=== PATIENT | male | born 1950 | race Caucasian/White ===

== ENCOUNTER 2022-01-07 00:24 | Day surgery (SDC) | payer MEDICARE, SELFPAY ==
[2021-12-28 12:11] VITALS: BMI 23.4
--- NOTE | 2022-01-06 15:18 | PM.HPGS ---
History of Present Illness History of Present Illness Consent: Risks, benefits, and alternatives have been discussed and questions answered. Patient agrees to proceed with procedure. Chief complaint: neoplasm screening Narrative: Jean Paul Obrien is a 71 year old male who was referred for colon cancer screening. he has a history of colon polyps. His last colonoscopy was 5 years ago Review of Systems Review of Systems: All systems reviewed & are unremarkable except as noted in HPI and below PMFSH Past Medical History Medical History Hyperlipidemia Lymphoma in remission Renal stones Surgical History Surgical History H/O nasal septoplasty Social History Social History Smoking status: Never smoker Alcohol intake: current Alcohol use details: Rarely Living arrangements: with family Gender identity (if verbalized by the patient): Male Spiritual care concerns: No Meds Home Medications and Allergies Home Medications Medication Instructions Recorded Confirmed Type acetaminophen [Tylenol Extra 500 mg PO Q4H PRN 07/03/19 01/07/22 History Strength] biotin 2,500 mcg PO DAILY 12/28/21 01/07/22 History simvastatin 40 mg PO DAILY 12/28/21 01/07/22 History Allergies Allergy/AdvReac Type Severity Reaction Status Date / Time iohexol Allergy Intermediate Hives Verified 01/07/22 08:46 [From CONTRAST - CT, XRAY] amoxicillin Allergy Unknown Confusion Verified 01/07/22 08:46 clavulanic acid Allergy Unknown Confusion Verified 01/07/22 08:46 Exam Const: General: alert Orientation/consciousness: patient oriented x3 Resp: Auscultation: clear to auscultation bilaterally Cardio: Rhythm: regular rhythm GI: GI Palp: Yes Soft to palpation and No Tenderness to palpation present (GI) Neuro: General: patient oriented x3 Assessment and Plan Assessment and plan (1) Colon cancer screening: Code(s): Z12.11 - Encounter for screening for malignant neoplasm of colon Status: Acute Assessment and Plan: Colonoscopy with possible biopsy or polypectomy or cautery or injection of substances.
[2022-01-07 08:37] VITALS: BP 96/59; PULSE 71; RESP 16; TEMP 35.9; O2SAT 99; BMI 23.0
--- NOTE | 2022-01-07 08:53 | WPDANESEPPF ---
Anes - Initial Pre Proc Eval Procedure: Operation Date: 01/07/22 10:00 Proposed Procedures p Screening Colonoscopy - Matthew Sutherland MD Date/Time: 01/07/22 08:53 Surgeon: Matthew Sutherland MD Pre Op Diagnosis: neoplasm screening Patient Data Age: 71 Gender: M Height: 1.73 m Weight: 68.6 kg Last Vital Signs Temp 35.9 C L 01/07/22 08:37 Pulse 71 01/07/22 08:37 Resp 16 01/07/22 08:37 BP 96/59 L 01/07/22 08:37 Pulse Ox 99 01/07/22 08:37 Allergies Allergy/AdvReac Type Severity Reaction Status Date / Time iohexol Allergy Intermediate Hives Verified 01/07/22 08:46 [From CONTRAST - CT, XRAY] amoxicillin Allergy Unknown Confusion Verified 01/07/22 08:46 clavulanic acid Allergy Unknown Confusion Verified 01/07/22 08:46 Home Medications Medication Instructions Recorded Confirmed Type acetaminophen [Tylenol Extra 500 mg PO Q4H PRN 07/03/19 01/07/22 History Strength] biotin 2,500 mcg PO DAILY 12/28/21 01/07/22 History simvastatin 40 mg PO DAILY 12/28/21 01/07/22 History Patient hx anesthesia problems: none Family hx anesthesia problems: none Results Review: All pre-operative results and documents have been reviewed as part of the pre-operative evaluation. COUNT INCLUDES THE [facility] Past Medical History Medical History (Updated 01/07/22 @ 08:54 by Osmani Brink MD) Hyperlipidemia Lymphoma in remission Renal stones Surgical History Surgical History (Updated 07/05/19 @ 09:04 by Sabas Barba MD) H/O nasal septoplasty Social History Social History Smoking status: Never smoker Alcohol intake: current Alcohol use details: Rarely Living arrangements: with family Gender identity (if verbalized by the patient): Male Spiritual care concerns: No Anes - Eval Final PreProcedure Day of Procedure 01/07/22 08:53 Patient weight: overweight Heart: regular rate and rhythm Lungs: clear to auscultation and normal air movement Airway: Mallampati scale class II Neurological: alert and oriented Last oral intake: >/= 8 hours ASA classification: II Emergent: no Anesthetic plan: proceed Anesthesia type and monitoring: general GIVS Results Review: All pre-operative results and documents have been reviewed as part of the pre-operative evaluation. Informed Consent: The patient's anesthetic plan and its attendant risks and benefits were discussed with the patient/family/POA. Questions were solicited and answers provided to the satisfaction of the patient/family/POA.
[2022-01-07] MEDS: LACTATED RINGERS 1,000 ML 150 ML IV CONT (08:57)
--- NOTE | 2022-01-07 10:11 | SUR.OPER ---
Rn verified collection of descending colon polyp with Dr. Sutherland and had him visualize specimen cup to verify specimen
[2022-01-07 10:12] VITALS: BP 79/52; PULSE 60; RESP 20; O2SAT 95
[2022-01-07 10:22] VITALS: BP 98/63; PULSE 62; RESP 20; O2SAT 98
[2022-01-07 10:32] VITALS: BP 108/76; PULSE 60; RESP 20; O2SAT 98
== END 2022-01-07 10:46 | disposition home or self-care (01) ==
PROVIDERS: PCP Internal Medicine; Visit Provider Internal Medicine Gastroenterology
PROC: 0DJD8ZZ Inspection of Lower Intestinal Tract, Via Natural or Artificial Opening Endoscopic (ICD-10-PCS; CPT 45378; principal; 2022-01-07 10:00)
DX: Z12.11 Encounter for screening for malignant neoplasm of colon (principal); K64.8 Other hemorrhoids; K57.30 Diverticulosis of large intestine without perforation or abscess without bleeding; D12.4 Benign neoplasm of descending colon; E78.5 Hyperlipidemia, unspecified; Z85.72 Personal history of non-Hodgkin lymphomas
CPT/HCPCS: 45385; 45381; 88305; J2370; J2704; J7120

== ENCOUNTER 2025-01-15 11:07 | Outpatient (CLI) | payer MEDICARE, SELFPAY ==
--- NOTE | ~2025-01-15 | XR_ITS ---
Lumbosacral Spine: AP and lateral views Clinical History: Pain Findings: There is dextroscoliosis, apex at L2. There is grade 1 retrolisthesis of L2 over L3, with s evere degenerative disc narrowing at L2-L3. There is mild degenerative disc change at L3-L4, L4-L5, a nd L5-S1. There is advanced facet arthropathy throughout the lumbar spine. The sacroiliac joints are normally outlined. Impression: Moderate to advanced degenerative spondylosis, as above. Dextro scoliosis, apex at L2. Grade 1 retrolisthesis of L2 over L3. Reviewed, dictated and finalized at location M. Impression: Moderate to advanced degenerative spondylosis, as above. Dextro scoliosis, apex at L2. Grade 1 retrolisthesis of L2 over L3.
== END 2025-01-15 11:08 | disposition home or self-care (01) ==
LOC: MICIMG 11:11
PROVIDERS: PCP Internal Medicine; Visit Provider Internal Medicine
DX: M47.816 Spondylosis without myelopathy or radiculopathy, lumbar region (principal); M41.86 Other forms of scoliosis, lumbar region; M43.16 Spondylolisthesis, lumbar region
CPT/HCPCS: 72100

== ENCOUNTER 2025-07-23 09:31 | Outpatient (CLI) | payer MEDICARE, SELFPAY ==
--- NOTE | ~2025-07-23 | US_ITS ---
EXAMINATION: US renal BI, 07/23/2025 9:34 [employer] HISTORY: Unspecified abnormal finding in specimens from other organs, Comparison: None Technique: Carlson-scale and color Doppler images were obtained. Findings: KIDNEYS: The renal cortices are intact with no hydronephrosis. Right Kidney: Right kidney 9.7 x 5.9 x 5.8 cm, mid pole simple cyst 2.7 x 2.6 cm. Left Kidney: Left kidney 9.3 x 4.9 x 5 cm, superior pole simple cyst 4.7 x 4.6 cm, mid pole echogenic lesion 1.4 x 1 cm possible nonshadowing calculus or small angiomyolipoma. Bladder: The bladder is unremarkable. . Impression: 1. Bilateral simple appearing renal cysts. Left renal calculus versus angiomyolipoma. CT is suggested to assess Reviewed, dictated and finalized at location P. L STAFF MEMBER Impression: 1. Bilateral simple appearing renal cysts. Left renal calculus versus angiomyol ipoma. CT is suggested to assess
== END 2025-07-23 09:32 | disposition home or self-care (01) ==
LOC: MICIMG 09:32
PROVIDERS: PCP Internal Medicine; Visit Provider Internal Medicine
DX: R89.9 Unspecified abnormal finding in specimens from other organs, systems and tissues (principal); N28.1 Cyst of kidney, acquired
CPT/HCPCS: 76770